=== PATIENT | female | born 1955 | race Caucasian/White ===

== ENCOUNTER 2023-04-01 08:48 | Emergency (ER) | payer MEDICARE, MEDICAID, SELFPAY ==
[2023-04-01 08:49] VITALS: BP 164/71; PULSE 103; RESP 16; TEMP 36.9; O2SAT 97; BMI 24.2
--- NOTE | 2023-04-01 09:28 | ED.ABDPAIN1 ---
HPI - Abdominal Pain General Chief Complaint: Abdominal Pain Stated Complaint: BACK PAIN Time Seen by Provider: 04/01/23 09:28 Source: patient Mode of arrival: ambulance History of Present Illness HPI narrative: Linda is here from a care facility complaining of abdominal pain. She's not had vomiting or diarrhea. In fact she's not moved her bowels for several days. Nurses record indicate that she's not been given a laxatives but she does take analgesics on a regular basis in the form of Vicodin according to the nursing records. She says her back is sore from lying on she's hopeful that they will give her an air mattress. She's not been running a fever. She does not have any problem urinating that she admits to. Related Data Home Medications Medication Instructions Recorded Confirmed azelastine-fluticasone 137 mcg-50 2 spray intranasal BID 04/01/23 04/01/23 mcg/spray nasal spray bisacodyl 10 mg rectal suppository 10 mg ME DAILY PRN constipation 04/01/23 04/01/23 bisacodyl 5 mg tablet 10 mg PO DAILY PRN constipation 04/01/23 04/01/23 calcium carbonate 200 mg calcium 500 mg PO Q8H PRN indigestion 04/01/23 04/01/23 (500 mg) chewable tablet (Calcium Antacid) dexamethasone 1.5 mg tablet 1.5 mg PO DAILY 04/01/23 04/01/23 hydrocodone 5 mg-acetaminophen 325 1 tab PO Q4H PRN pain 04/01/23 04/01/23 mg tablet hydroxyzine HCl 25 mg tablet 25 mg PO Q6H PRN anxiety 04/01/23 04/01/23 ipratropium 0.5 mg-albuterol 3 mg 3 ml inhalation Q4H PRN shortness 04/01/23 04/01/23 (2.5 mg base)/3 mL nebulization of breath or wheezing soln magnesium hydroxide 400 mg/5 mL 30 ml PO DAILY PRN constipation 04/01/23 04/01/23 oral suspension (Milk of Magnesia) omeprazole 20 mg capsule,delayed 20 mg PO BID 04/01/23 04/01/23 release sodium phosphates 19 gram-7 118 ml ME DAILY PRN constipation 04/01/23 04/01/23 gram/118 mL enema (Fleet Enema) umeclidinium 62.5 mcg/actuation 1 inh inhalation DAILY 04/01/23 04/01/23 blister powder for inhalation (Incruse Ellipta) Allergies Allergy/AdvReac Type Severity Reaction Status Date / Time clarithromycin [From Biaxin] Allergy Severe Verified 04/01/23 08:53 [facility] Medical History (Updated 04/01/23 @ 11:37 by Cecil Dorsey MD) Cataract, bilateral ?H26.9 - Unspecified cataract (ICD-10) Osteoarthritis ?M19.90 - Unspecified osteoarthritis, unspecified site (ICD-10) Other ovarian cyst, left side ?N83.292 - Other ovarian cyst, left side (ICD-10) Nicotine dependence ?F17.200 - Nicotine dependence, unspecified, uncomplicated (ICD-10) Solitary pulmonary nodule ?R91.1 - Solitary pulmonary nodule (ICD-10) GERD (gastroesophageal reflux disease) ?K21.9 - Gastro-esophageal reflux disease without esophagitis (ICD-10) On home O2 ?Z99.81 - Dependence on supplemental oxygen (ICD-10) Constipation ?K59.00 - Constipation, unspecified (ICD-10) Anxiety ?F41.9 - Anxiety disorder, unspecified (ICD-10) Chronic obstructive pulmonary disease ?J44.9 - Chronic obstructive pulmonary disease, unspecified (ICD-10) Exam Narrative Exam Narrative: awake alert does not appear to be uncomfortable. She is afebrile vital signs are normal. Examination the abdomen is flat soft supple. There is no umbilical or groin herniation. There is no pulsatile masses or bruits. There is no rigidity. Lemos sign is negative. She has no respiratory distress and no cardiac complaints. Her pulse is regular. Her perfusion to the extremities is normal. The examination does not suggest an acute medical emergency screening lab and imaging will be done Constitutional Vital Signs, click to edit/add: Last Vital Signs Temp 98.5 F 04/01/23 08:49 Pulse 94 H 04/01/23 10:37 Resp 14 04/01/23 10:37 BP 134/78 04/01/23 10:37 Pulse Ox 100 04/01/23 10:37 O2 Del Method Nasal Cannula 04/01/23 10:37 O2 Flow Rate 3 04/01/23 10:37 Course Vital Signs Vital signs: Vital Signs Temperature 98.5 F 04/01/23 08:49 Pulse Rate 103 H 04/01/23 08:49 Respiratory Rate 16 04/01/23 08:49 Blood Pressure 164/71 H 04/01/23 08:49 Pulse Oximetry 97 04/01/23 08:49 Oxygen Delivery Method Nasal Cannula 04/01/23 08:49 Oxygen Delivery Flow Rate 4 04/01/23 08:49 Temperature 98.5 F 04/01/23 08:49 Pulse Rate 94 H 04/01/23 10:37 Respiratory Rate 14 04/01/23 10:37 Blood Pressure 134/78 04/01/23 10:37 Pulse Oximetry 100 04/01/23 10:37 Oxygen Delivery Method Nasal Cannula 04/01/23 10:37 Oxygen Delivery Flow Rate 3 04/01/23 10:37 MDM - Abdominal Pain MDM Narrative Medical decision making narrative: patient's laboratory testing is normal and her x-rays do not show an acute process but is consistent with constipation. Nursing reports indicate that she has laxatives and intervention ordered at her care facility. There is no reason this needs to be conducted here in the emergency room. There is not an emergency medical condition and she will be transported back Lab Data Labs: Lab Results 04/01/23 04/01/23 Range/Units 08:55 09:40 WBC 9.9 (4.0-11.0) 10^3/uL RBC 3.48 L (4.20-5.40) 10^6/uL Hgb 10.3 L (12.0-16.0) g/dL Hct 34.9 L (36.0-48.0) % MCV 100.3 H (81.0-99.0) fL MCH 29.6 (26.7-34.0) pg MCHC 29.5 L (29.9-35.2) g/dL RDW 13.3 (11.0-15.0) % Plt Count 408 (150-450) 10^3/uL MPV 9.8 (9.5-13.5) fL Neut % (Auto) 81.5 H (43.0-75.0) % Lymph % (Auto) 9.8 L (20.5-60.0) % [place] % (Auto) 5.5 (1.7-12.0) % Eos % (Auto) 0.5 L (0.9-7.0) % Baso % (Auto) 0.4 (0.2-2.0) % Neut # (Auto) 8.1 H (1.4-6.5) 10^3/uL Lymph # (Auto) 1.0 L (1.2-3.8) 10^3/uL [place] # (Auto) 0.5 (0.3-0.8) 10^3/uL Eos # (Auto) 0.1 (0.0-0.7) 10^3/uL Baso # (Auto) 0.0 (0.0-0.1) 10^3/uL Abs Immat Gran (auto) 0.23 H (0.00-0.03) 10^3/uL Imm/Tot Granulo (auto) 2.3 H (0.0-0.5) % Lactate 1.0 (0.4-2.0) mmol/L Lipase 26.0 (16.0-77.0) U/L Urine Color Yellow (YELLOW) Urine Clarity Clear (CLEAR) Urine pH 6.0 (5.0-9.0) Ur Specific [place] 1.025 (1.005-1.025) Urine Protein Negative (NEG/TRACE) mg/dL Urine Glucose (UA) Negative (NEGATIVE) mg/dL Urine Ketones 15 A (NEGATIVE) mg/dL Urine Occult Blood Negative (NEGATIVE) Urine Nitrite Negative (NEGATIVE) Urine Bilirubin Small A (NEGATIVE) Urine Urobilinogen 1.0 (0.2-1.0) EU/dL Ur Leukocyte Esterase Negative (NEGATIVE) Discharge Plan Discharge Chief Complaint: Abdominal Pain Clinical Impression: Constipation Patient Disposition: Home, Self-Care Time of Disposition Decision: 11:36 Prescriptions / Home Meds: No Action dexamethasone 1.5 mg tablet 1.5 mg PO DAILY Incruse Ellipta 62.5 mcg/actuation blister with device 1 inh inhalation DAILY azelastine-fluticasone 137-50 mcg/spray spray,non-aerosol 2 spray intranasal BID Rx Instructions: administer into each nostril omeprazole 20 mg capsule,delayed release(DR/EC) 20 mg PO BID bisacodyl 5 mg tablet 10 mg PO DAILY PRN (Reason: constipation) calcium carbonate [Calcium Antacid] 200 mg calcium (500 mg) tablet,chewable 500 mg PO Q8H PRN (Reason: indigestion) bisacodyl 10 mg suppository 10 mg ME DAILY PRN (Reason: constipation) Fleet Enema 19-7 gram/118 mL enema 118 ml ME DAILY PRN (Reason: constipation) hydrocodone-acetaminophen 5-325 mg tablet 1 tab PO Q4H PRN (Reason: pain) hydroxyzine HCl 25 mg tablet 25 mg PO Q6H PRN (Reason: anxiety) ipratropium-albuterol 0.5 mg-3 mg(2.5 mg base)/3 mL solution for nebulization 3 ml inhalation Q4H PRN (Reason: shortness of breath or wheezing) magnesium hydroxide [Milk of Magnesia] 400 mg/5 mL suspension 30 ml PO DAILY PRN (Reason: constipation) Additional Instructions: use the medications prescribed at her care facility to deal with constipation Stand Alone Forms: Portal Instructions Referrals: ANTHONY LINTON [Primary Care Provider] - 1 week
[2023-04-01] MEDS: 0.9 % SODIUM CHLORIDE 1,000 ML 999 ML IV (09:48)
[2023-04-01 10:01] LABS: Basophils Percent Auto 0.4 % (0.2-2.0); Eosinophils Absolute Auto 0.1 10^3/uL (0.0-0.7); Eosinophils Percent Auto 0.5 % (0.9-7.0); Hematocrit 34.9 % (36.0-48.0); Hemoglobin 10.3 g/dL (12.0-16.0); Immature Granulocytes Abs Auto 0.23 10^3/uL (0.00-0.03); Immature Granulocytes Pct Auto 2.3 % (0.0-0.5); Lymphocytes Percent Auto 9.8 % (20.5-60.0); Mean Corpuscular HGB Conc 29.5 g/dL (29.9-35.2); Mean Corpuscular Hemoglobin 29.6 pg (26.7-34.0); Mean Corpuscular Volume 100.3 fL (81.0-99.0); Mean Platelet Volume 9.8 fL (9.5-13.5); Monocytes Absolute Auto 0.5 10^3/uL (0.3-0.8); Monocytes Percent Auto 5.5 % (1.7-12.0); Neutrophils Absolute Auto 8.1 10^3/uL (1.4-6.5); Neutrophils Percent Auto 81.5 % (43.0-75.0); Platelet Count 408 10^3/uL (150-450); Red Blood Count 3.48 10^6/uL (4.20-5.40); Red Cell Distribution Width 13.3 % (11.0-15.0); White Blood Count 9.9 10^3/uL (4.0-11.0)
[2023-04-01 10:03] LABS: Bilirubin Urine SMALL (NEGATIVE); Blood Urine NEGATIVE (NEGATIVE); Clarity Urine CLEAR (CLEAR); Color Urine YELLOW (YELLOW); Glucose Urine UA NEGATIVE (NEGATIVE); Ketones Urine 15 mg/dL (NEGATIVE); Leukocyte Esterase Urine NEGATIVE (NEGATIVE); Nitrite Urine NEGATIVE (NEGATIVE); Protein Urine NEGATIVE (NEG/TRACE); Specific Gravity Urine 1.025 (1.005-1.025)
[2023-04-01 10:04] LABS: Urine Microscopic Indicated NO
[2023-04-01] MEDS: HYDROCODONE/ACET 5-325 MG TABLET 1 TAB PO (10:05)
--- NOTE | 2023-04-01 10:25 | XR_ITS ---
The [address] [address] Patient Name: HARIS GAVIRIA MRN: [id number] date: 1955 Sex: F Assigned Patient Location: ER Current Patient Location: ER Accession/Order Number: [id number] Exam Date: 04/01/2023 10:12 Report Date: 04/01/2023 10:42 At the request of: RUTHIE MITCHELL Procedure: XR acute abdomen series EXAM: XR acute abdomen series HISTORY: Abdominal pain COMPARISON: Low-dose CT Lung Screening study dated 05/03/2016 TECHNIQUE: PA view of the chest was obtained. Supine and upright views of the abdomen were obtained. FINDINGS: Heart and mediastinal contours are unremarkable in appearance. Generalized COPD. No acute infiltrate or consolidations are seen. Small density overlying each lower lung field compatible with nipple shadows. There is air seen in large and small bowel loops. No evidence of bowel obstruction or free intraperitoneal air. Mildly increased fecal load in the colon and rectum which is nonspecific, correlate for mild degree of constipation. Bony structures appear grossly intact. XR/XR acute abdomen series IMPRESSION: COPD. No obvious focal infiltrate or consolidation. Correlate for possible mild constipation. Electronically authenticated by: JANETTE JUSTIN Date: 04/01/2023 10:42
[2023-04-01 10:37] VITALS: BP 134/78; PULSE 94; RESP 14; O2SAT 100
[2023-04-01 11:41] VITALS: BP 107/74; PULSE 70; RESP 16; O2SAT 98
--- NOTE | 2023-04-01 11:59 | ED.GENADUL1 ---
HPI - General Adult General Chief complaint: Abdominal Pain Stated complaint: BACK PAIN Time Seen by Provider: 04/01/23 09:28 Source: patient and family Mode of arrival: ambulance History of Present Illness HPI narrative: this patient drive from [facility] by ems for complaint of abdominal discomfort and back discomfort. Later her son who is a mid-level practitioner came in and he was told that she had altered mental status. That was not given to us report and I saw this patient initially, and now as well , there is actually no change in her mental status and cognition According to the medical record she has not been given any laxatives but they are ordered for her..we reviewed her medication history. She is on narcotic analgesics and the son is working with his providers as he knows this could be causing the constipation as well. In the meantime she is not any vomiting or diarrhea. She says she hasn't had a good bowel movement for several days.by report she is not running a fever and she is afebrile here. Her vital signs on examination here are as noted are normal. She is not currently on any antibiotic treatment. She denies any voiding problems. She says that she does have vissual loss but she hears and speaks fine. Related Data Home Medications Medication Instructions Recorded Confirmed azelastine-fluticasone 137 mcg-50 2 spray intranasal BID 04/01/23 04/01/23 mcg/spray nasal spray bisacodyl 10 mg rectal suppository 10 mg WI DAILY PRN constipation 04/01/23 04/01/23 bisacodyl 5 mg tablet 10 mg PO DAILY PRN constipation 04/01/23 04/01/23 calcium carbonate 200 mg calcium 500 mg PO Q8H PRN indigestion 04/01/23 04/01/23 (500 mg) chewable tablet (Calcium Antacid) dexamethasone 1.5 mg tablet 1.5 mg PO DAILY 04/01/23 04/01/23 hydrocodone 5 mg-acetaminophen 325 1 tab PO Q4H PRN pain 04/01/23 04/01/23 mg tablet hydroxyzine HCl 25 mg tablet 25 mg PO Q6H PRN anxiety 04/01/23 04/01/23 ipratropium 0.5 mg-albuterol 3 mg 3 ml inhalation Q4H PRN shortness 04/01/23 04/01/23 (2.5 mg base)/3 mL nebulization of breath or wheezing soln magnesium hydroxide 400 mg/5 mL 30 ml PO DAILY PRN constipation 04/01/23 04/01/23 oral suspension (Milk of Magnesia) omeprazole 20 mg capsule,delayed 20 mg PO BID 04/01/23 04/01/23 release sodium phosphates 19 gram-7 118 ml WI DAILY PRN constipation 04/01/23 04/01/23 gram/118 mL enema (Fleet Enema) umeclidinium 62.5 mcg/actuation 1 inh inhalation DAILY 04/01/23 04/01/23 blister powder for inhalation (Incruse Ellipta) Allergies Allergy/AdvReac Type Severity Reaction Status Date / Time clarithromycin [From Biaxin] Allergy Severe Verified 04/01/23 08:53 [facility] Medical History (Updated 04/01/23 @ 11:37 by Cecil Dorsey MD) Cataract, bilateral ?H26.9 - Unspecified cataract (ICD-10) Osteoarthritis ?M19.90 - Unspecified osteoarthritis, unspecified site (ICD-10) Other ovarian cyst, left side ?N83.292 - Other ovarian cyst, left side (ICD-10) Nicotine dependence ?F17.200 - Nicotine dependence, unspecified, uncomplicated (ICD-10) Solitary pulmonary nodule ?R91.1 - Solitary pulmonary nodule (ICD-10) GERD (gastroesophageal reflux disease) ?K21.9 - Gastro-esophageal reflux disease without esophagitis (ICD-10) On home O2 ?Z99.81 - Dependence on supplemental oxygen (ICD-10) Constipation ?K59.00 - Constipation, unspecified (ICD-10) Anxiety ?F41.9 - Anxiety disorder, unspecified (ICD-10) Chronic obstructive pulmonary disease ?J44.9 - Chronic obstructive pulmonary disease, unspecified (ICD-10) Exam Narrative Exam Narrative: patient awake alert oriented ?3 foollows simple not complex commands. There is no apparent short or long-term memory compromise. Vital signs are normal. She does not appear acutely ill. Examination the abdomen showed to be soft and supple there is a small diastases recti but there is no femoral hernias. There is no bruit or pulsatile masses. There is no guarding or rebound or rigidity. Heart examination shows normal pulses. Lungs are clear with some scattered rhonchi but no wheezing. Skin is warm and dry. She has chronic venous insufficiency and they're dealing with some wounds on her feet that according to her son, the mid-level practitioner appeared status quo for her and not worsened. Constitutional Vital Signs, click to edit/add: Last Vital Signs Temp 98.5 F 04/01/23 08:49 Pulse 70 04/01/23 11:41 Resp 16 04/01/23 11:41 BP 107/74 04/01/23 11:41 Pulse Ox 98 04/01/23 11:41 O2 Del Method Nasal Cannula 04/01/23 11:41 O2 Flow Rate 3 04/01/23 11:41 Course Vital Signs Vital signs: Vital Signs Temperature 98.5 F 04/01/23 08:49 Pulse Rate 103 H 04/01/23 08:49 Respiratory Rate 16 04/01/23 08:49 Blood Pressure 164/71 H 04/01/23 08:49 Pulse Oximetry 97 04/01/23 08:49 Oxygen Delivery Method Nasal Cannula 04/01/23 08:49 Oxygen Delivery Flow Rate 4 04/01/23 08:49 Temperature 98.5 F 04/01/23 08:49 Pulse Rate 70 04/01/23 11:41 Respiratory Rate 16 04/01/23 11:41 Blood Pressure 107/74 04/01/23 11:41 Pulse Oximetry 98 04/01/23 11:41 Oxygen Delivery Method Nasal Cannula 04/01/23 11:41 Oxygen Delivery Flow Rate 3 04/01/23 11:41 Medical Decision Making MDM Narrative Medical decision making narrative: patient has no evidence of altered mental status and CT imaging was not done. Her belly examination was benign to the clinical examination and the abdominal series x-rays was also benign but there is definitely a component of constipation. Her urinalysis is normal and her CBC is normal. The son requested a urine toxicology screen that will be done as well. Lab Data Labs: Lab Results 04/01/23 04/01/23 Range/Units 08:55 09:40 WBC 9.9 (4.0-11.0) 10^3/uL RBC 3.48 L (4.20-5.40) 10^6/uL Hgb 10.3 L (12.0-16.0) g/dL Hct 34.9 L (36.0-48.0) % MCV 100.3 H (81.0-99.0) fL MCH 29.6 (26.7-34.0) pg MCHC 29.5 L (29.9-35.2) g/dL RDW 13.3 (11.0-15.0) % Plt Count 408 (150-450) 10^3/uL MPV 9.8 (9.5-13.5) fL Neut % (Auto) 81.5 H (43.0-75.0) % Lymph % (Auto) 9.8 L (20.5-60.0) % [place] % (Auto) 5.5 (1.7-12.0) % Eos % (Auto) 0.5 L (0.9-7.0) % Baso % (Auto) 0.4 (0.2-2.0) % Neut # (Auto) 8.1 H (1.4-6.5) 10^3/uL Lymph # (Auto) 1.0 L (1.2-3.8) 10^3/uL [place] # (Auto) 0.5 (0.3-0.8) 10^3/uL Eos # (Auto) 0.1 (0.0-0.7) 10^3/uL Baso # (Auto) 0.0 (0.0-0.1) 10^3/uL Abs Immat Gran (auto) 0.23 H (0.00-0.03) 10^3/uL Imm/Tot Granulo (auto) 2.3 H (0.0-0.5) % Lactate 1.0 (0.4-2.0) mmol/L Lipase 26.0 (16.0-77.0) U/L Urine Color Yellow (YELLOW) Urine Clarity Clear (CLEAR) Urine pH 6.0 (5.0-9.0) Ur Specific [place] 1.025 (1.005-1.025) Urine Protein Negative (NEG/TRACE) mg/dL Urine Glucose (UA) Negative (NEGATIVE) mg/dL Urine Ketones 15 A (NEGATIVE) mg/dL Urine Occult Blood Negative (NEGATIVE) Urine Nitrite Negative (NEGATIVE) Urine Bilirubin Small A (NEGATIVE) Urine Urobilinogen 1.0 (0.2-1.0) EU/dL Ur Leukocyte Esterase Negative (NEGATIVE) Discharge Plan Discharge Chief Complaint: Abdominal Pain Clinical Impression: Constipation Patient Disposition: Home, Self-Care Time of Disposition Decision: 11:36 Condition: Good Mode of Transportation: EMS Prescriptions / Home Meds: No Action dexamethasone 1.5 mg tablet 1.5 mg PO DAILY Incruse Ellipta 62.5 mcg/actuation blister with device 1 inh inhalation DAILY azelastine-fluticasone 137-50 mcg/spray spray,non-aerosol 2 spray intranasal BID Rx Instructions: administer into each nostril omeprazole 20 mg capsule,delayed release(DR/EC) 20 mg PO BID bisacodyl 5 mg tablet 10 mg PO DAILY PRN (Reason: constipation) calcium carbonate [Calcium Antacid] 200 mg calcium (500 mg) tablet,chewable 500 mg PO Q8H PRN (Reason: indigestion) bisacodyl 10 mg suppository 10 mg WI DAILY PRN (Reason: constipation) Fleet Enema 19-7 gram/118 mL enema 118 ml WI DAILY PRN (Reason: constipation) hydrocodone-acetaminophen 5-325 mg tablet 1 tab PO Q4H PRN (Reason: pain) hydroxyzine HCl 25 mg tablet 25 mg PO Q6H PRN (Reason: anxiety) ipratropium-albuterol 0.5 mg-3 mg(2.5 mg base)/3 mL solution for nebulization 3 ml inhalation Q4H PRN (Reason: shortness of breath or wheezing) magnesium hydroxide [Milk of Magnesia] 400 mg/5 mL suspension 30 ml PO DAILY PRN (Reason: constipation) Instructions: Constipation (ED) Additional Instructions: use the medications prescribed at her care facility to deal with constipation Stand Alone Forms: Portal Instructions Referrals: ANTHONY LINTON [Primary Care Provider] - 1 week
[2023-04-01 12:18] LABS: Amphetamine Screen Urine NEGATIVE (NEGATIVE); Barbiturates Screen Urine NEGATIVE (NEGATIVE); Benzodiazepines Screen Urine NEGATIVE (NEGATIVE); Cannabinoid Screen Urine NEGATIVE (NEGATIVE); Cocaine Screen Urine NEGATIVE (NEGATIVE); Methadone Screen Urine NEGATIVE (NEGATIVE); Methamphetamines Screen Urine NEGATIVE (NEGATIVE); Opiate Screen Urine POSITIVE (NEGATIVE); Phencyclidine Screen Urine NEGATIVE (NEGATIVE); Tricyclic Antidepressant Urine NEGATIVE (NEGATIVE)
[2023-04-01 12:19] LABS: Buprenorphine Screen Urine NEGATIVE (NEGATIVE); Oxycodone Screen Urine NEGATIVE (NEGATIVE)
[2023-04-01 13:09] VITALS: BP 139/73
[2023-04-01 13:21] LABS: Anion Gap 5.3; Calcium 8.9 mg/dL (8.5-10.1); Carbon Dioxide 41.2 mmol/L (21.0-32.0); Chloride 99 mmol/L (98-107); Estimated GFR (African America >60 (>=60); Estimated GFR (Non-African Ame >60 (>=60); Glucose 152 mg/dL (74-106); Potassium 3.5 mmol/L (3.5-5.1); Sodium 142 mmol/L (136-145)
== END 2023-04-01 13:48 | disposition home or self-care (01) ==
PROVIDERS: Emergency Provider Emergency Medicine Emergency Medical Services; PCP Internal Medicine
DX: K59.00 Constipation, unspecified (principal); M19.90 Unspecified osteoarthritis, unspecified site; K21.9 Gastro-esophageal reflux disease without esophagitis; Z99.81 Dependence on supplemental oxygen; F41.9 Anxiety disorder, unspecified; J44.9 Chronic obstructive pulmonary disease, unspecified; Z79.899 Other long term (current) drug therapy
CPT/HCPCS: 36415; 74022; 80048; 80307; 81003; 83605; 83690; 85025; 99284